=== PATIENT | male | born 1940 | race Hispanic/Latino ===

== ENCOUNTER 2018-01-25 14:11 | Inpatient (IN) | payer MEDICARE ==
[~2018-01-25] VITALS: Ht 154.9 cm; Wt 51.8 kg
--- NOTE | 2018-01-25 17:06 | Diagnostic Imaging Report ---
PROCEDURE:X-RAY LEFT FOOT, COMPLETE COMPARISON:None. INDICATIONS:LEFT FIRST DIGIT INFECTION FINDINGS: Normal mineralization. No acute displaced fracture or dislocation. No lytic or blastic lesion. Cortical surfaces are intact, without erosion or destruction. Anterior and posterior calcaneal enthesophytes. Vascular calcifications. Soft tissue swelling in the first toe. CONCLUSION: Soft tissue swelling in the first toe, without underlying cortical erosion or destruction to suggest osteomyelitis. Stefan Werner M.D. Dictated by: Stefan Werner M.D. on 01/25/2018 at 17:11 Electronically approved by: Stefan Werner M.D. on 01/25/2018 at 17:11
[2018-01-25 17:23] LABS: BASOPHILS # (AUTO) 0.1 (0.0-0.1); BASOPHILS % 0.7 % (0.0-1.0); EOSINOPHILS # (AUTO) 0.7 (0.0-0.4); EOSINOPHILS % 6.6 % (0.0-6.0); HEMATOCRIT 41.6 % (38.2-49.6); HEMOGLOBIN 13.8 g/dL (14.0-18.0); LYMPHOCYTES # (AUTO) 2.1 (1.0-3.2); LYMPHOCYTES % 18.6 % (18.0-39.1); MEAN CORPUSCULAR HEMOGLOBIN 28.8 pg (28-32); MEAN CORPUSCULAR HGB CONC 33.2 g/dL (31-35); MEAN CORPUSCULAR VOLUME 86.7 fL (81-99); NEUTROPHILS # (AUTO) 7.2 (2.1-6.9); NEUTROPHILS % 64.9 % (38.7-80.0); PLATELET COUNT 248 x10e3/uL (140-360); RED CELL DISTRIBUTION WIDTH 13.2 % (11.7-14.4)
[2018-01-25 17:44] LABS: ALANINE AMINOTRANSFERASE 15 IU/L (0-55); ALBUMIN 3.7 g/dL (3.5-5.0); ALBUMIN/GLOBULIN RATIO 0.7 (0.8-2.0); ALKALINE PHOSPHATASE 111 IU/L (40-150); ANION GAP 14.7 mmol/L (8-16); BLOOD UREA NITROGEN 22 mg/dL (7-26); BUN/CREATININE RATIO 21 (6-25); CALCIUM 9.5 mg/dL (8.4-10.2); CARBON DIOXIDE 28 mmol/L (22-29); CHLORIDE 98 mmol/L (98-107); CHOL/HDL RATIO 2.5 (3.9-4.7); CHOLESTEROL 181 MD/DL (0-199); CREATININE, SERUM 1.07 mg/dL (0.72-1.25); EST GLOMERULAR FILTRATION RATE > 60 ML/MIN (60-); GLUCOSE 378 mg/dL (74-118); HDL CHOLESTEROL 72 MG/DL (40-60); LDL CHOLESTEROL 71 MG/DL (60-130); POTASSIUM 3.7 mmol/L (3.5-5.1); SODIUM 137 mmol/L (136-145); TRIGLYCERIDES 192 MG/DL (0-149)
[2018-01-25] MEDS ORDERED: ENALAPRILAT IV INJ 1.25 MG/ML VIAL IV STA (17:50)
[2018-01-25] MEDS ORDERED: INSULIN REGULAR, HUMAN 100 UNIT/1 ML 3ML VIAL SQ ONE (18:00)
[2018-01-25] MEDS ORDERED: SODIUM CHLORIDE 0.9% 1000ML 1,000 ML IV ONE (18:00)
[2018-01-25] MEDS ORDERED: ONDANSETRON HCL INJ 2 MG/ML VIAL IV PRN (18:15)
[2018-01-25] MEDS ORDERED: SODIUM CHLORIDE FLUSH 10 ML SYR INJ PRN (18:15)
[2018-01-25] MEDS ORDERED: DEXTROSE 50% SYRINGE 50 ML IV PRN (18:15)
[2018-01-25] MEDS ORDERED: ENALAPRILAT IV INJ 1.25 MG/ML VIAL IV PRN (18:15)
[2018-01-25 21:00] VITALS: BP 180/79
[2018-01-25] MEDS: INSULIN LISPRO 100 UNIT/1 ML 3ML VIAL SQ SCH (21:00)
[2018-01-25] MEDS: ATORVASTATIN 20 MG TAB PO SCH (22:40)
[2018-01-26] VITALS (8 sets, daily range): BP systolic 104–174; BP diastolic 55–74
[2018-01-26 05:46] LABS: BASOPHILS # (AUTO) 0.1 (0.0-0.1); BASOPHILS % 0.6 % (0.0-1.0); EOSINOPHILS # (AUTO) 0.6 (0.0-0.4); EOSINOPHILS % 6.7 % (0.0-6.0); HEMATOCRIT 35.8 % (38.2-49.6); HEMOGLOBIN 11.9 g/dL (14.0-18.0); LYMPHOCYTES # (AUTO) 1.5 (1.0-3.2); LYMPHOCYTES % 16.2 % (18.0-39.1); MEAN CORPUSCULAR HGB CONC 33.2 g/dL (31-35); MEAN CORPUSCULAR VOLUME 87.1 fL (81-99); MONOCYTES % 10.7 % (4.4-11.3); NEUTROPHILS # (AUTO) 6.1 (2.1-6.9); NEUTROPHILS % 65.4 % (38.7-80.0); PLATELET COUNT 217 x10e3/uL (140-360); RED BLOOD COUNT 4.11 x10e6/uL (4.3-5.7); RED CELL DISTRIBUTION WIDTH 13.2 % (11.7-14.4)
--- NOTE | 2018-01-26 06:07 | Diagnostic Imaging Report ---
EXAM: CHEST SINGLE (PORTABLE), AP 1 view INDICATION: Chest pain COMPARISON: None FINDINGS: LINES/TUBES: None LUNGS: Nonspecific reticulonodular opacities bilaterally. Indeterminate opacity right infrahilar region. PLEURA: No effusions or pneumothorax. HEART AND MEDIASTINUM: The heart is within normal size limits. Prominence of the bilateral juanito. BONES AND SOFT TISSUES: No acute findings. IMPRESSION: Indeterminate findings including bilateral reticulonodular changes, prominence of the bilateral juanito and right infrahilar opacity. An upright PA and lateral view of the chest is recommended for further evaluation. Signed by: Dr. Ania Guzman M.D. on 01/26/2018 6:04 AM
[2018-01-26 06:15] LABS: ANION GAP 11.3 mmol/L (8-16); BLOOD UREA NITROGEN 17 mg/dL (7-26); BUN/CREATININE RATIO 20 (6-25); CALCIUM 8.7 mg/dL (8.4-10.2); CARBON DIOXIDE 27 mmol/L (22-29); CHLORIDE 105 mmol/L (98-107); CREATININE, SERUM 0.85 mg/dL (0.72-1.25); EST GLOMERULAR FILTRATION RATE > 60 ML/MIN (60-); GLUCOSE 230 mg/dL (74-118); POTASSIUM 4.3 mmol/L (3.5-5.1); SODIUM 139 mmol/L (136-145)
[2018-01-26] MEDS: INSULIN LISPRO 100 UNIT/1 ML 3ML VIAL SQ SCH ×4 (08:32→21:11)
[2018-01-26] MEDS ORDERED: LISINOPRIL 20 MG TAB PO SCH (09:00)
[2018-01-26] MEDS ORDERED: HYDRALAZINE HCL 20 MG/ML VIAL IV PRN (11:00)
[2018-01-26] MEDS: SODIUM CHLORIDE 0.9% 1000ML 1,000 ML IV SCH ×2 (12:45→21:15)
[2018-01-26] MEDS: VANCOMYCIN 1GM/NS 250 ML 250 ML IV SCH ×2 (12:45→23:35)
[2018-01-26] MEDS: PIPER-TAZ 3.375 GM 50 ML IV SCH ×2 (14:00→21:11)
--- NOTE | 2018-01-26 14:20 | History and Physical ---
CHIEF COMPLAINT: Left big toe gangrene. HPI: This is a 77-year-old male with known history of type 2 diabetes for more than 25+ years, hypertension, who comes into the ED with complaints of left gangrene toe pain ongoing for the last several months now. Patient reports that he has been going to the [facility] and has been given some oral antibiotics with no improvement. He has not had any referral to podiatry at this time. Patient denies any discharge from the toe or any fever as well. Patient seen and evaluated at bedside on the medical floor, currently doing well with no other complaints. Podiatry and cardiology has been consulted. Lower extremity angiogram, CTA runoff has been ordered. ID has been consulted. REVIEW OF SYSTEMS: Pertinent positive: Left big toe gangrene. Pertinent negative: Denies any chest pain, palpitation, nausea, vomiting, diarrhea, dysuria, hematuria. frequency, urgency, lightheadedness, dizziness, abdominal pain, headache, shortness of breath, or any other complaints. The rest of the 14-point review of systems have been reviewed with the patient and are negative. ALLERGIES: NO KNOWN DRUG ALLERGIES. HOME MEDICATIONS: Lisinopril 20 mg daily. He does not have any of his other medications, unsure if he is currently on insulin or not, this is all the medications he has currently at this time. PAST MEDICAL HISTORY: Hypertension, diabetes, and questionable history of PAD. SURGICAL HISTORY: None. FAMILY HISTORY: Hypertension and diabetes. SOCIAL HISTORY: No drugs. No alcohol. Does not smoke. Good social support. VITAL SIGNS: Temperature is 97.7, pulse 70, respiratory rate is 18, blood pressure 145/63, pulse ox 95% on room air. LABORATORY DATA: Lab findings show white count of 9.2, hemoglobin 11.9, hematocrit of 35.8, platelets of 217. Chemistry: Sodium 139, potassium 4.3, chloride 105, bicarb 27, anion gap of 11, BUN 17, creatinine is 0.85, glucose is 230, calcium 8.7. Hemoglobin A1c was found to be 9.2. Albumin was 3.7. LDL was 71. LFTs were normal. MICROBIOLOGY: Blood cultures are pending. IMAGING STUDIES: Chest x-ray indeterminate including bilateral reticular nodular changes. Prominent bilateral hilar and right infrahilar opacity. Foot x-ray, soft tissue swelling of the left first toe without any cortical erosion or discharge to suggest osteomyelitis. Lower extremity ultrasound, arterial Doppler pending. PHYSICAL EXAMINATION GENERAL: Not in acute distress, alert and oriented x3, cooperative on exam. HEENT: Head normocephalic, atraumatic. Eyes: Pupils equal, round, and reactive to light bilaterally. Extraocular movements intact bilaterally. Throat: No evidence of any erythema or exudates in the posterior pharynx. Has poor dentition. NECK: Supple. Good range of motion. PULMONARY: Clear to auscultation bilaterally. No wheezing. No rales, no rhonchi, no crackles appreciated. CARDIOVASCULAR: Positive S1, S2. No murmurs, rubs, or gallops appreciated. ABDOMEN: Soft, nondistended, nontender to palpation. Bowel sounds present. MUSCULOSKELETAL: Strength is 5/5 throughout. No evidence of any muscle deficit on examination. No weakness appreciated. NEUROLOGIC: Cranial nerves II through XII grossly intact. No evidence of any neurological deficit on exam. SKIN: Intact. Warm to touch. Good capillary refill. PSYCHIATRIC: Normal affect and mood. EXTREMITIES: He has left big toe dry gangrene. IMPRESSION 1. Left big toe dry gangrene. 2. Type 2 diabetes, uncontrolled. 3. Hypertension. 4. Prophylaxis. 5. Fluid, electrolytes, nutrition. 6. Disposition. PLAN: At this time, podiatry has been consulted. Likely needs debridement of the toe versus amputation of the left big toe. Arterial Doppler is consistent with decreased flow. Cardiology was consulted. Bilateral lower extremity abdominal aorta runoff to evaluate for vascularity in the event any intervention is needed. Will continue with IV antibiotics with vancomycin and Zosyn. ID has been consulted as well. We will put him on insulin sliding scale, A1c is elevated at 9.2. Continue same antihypertensive medications as well as p.r.n. hydralazine. Put on Lovenox for DVT prophylaxis. Patient will likely be here for several more days and will be inpatient at this time. Otherwise podiatry, ID, and cardiology have all been consulted. Job#: [id number] KATIE
--- NOTE | 2018-01-26 15:46 | Consultation ---
DATE OF CONSULTATION: January 26, 2018 REASON FOR CONSULTATION: Ulcer on left big toe. HISTORY OF PRESENT ILLNESS: This patient is a very pleasant 77-year-old male with diabetes mellitus, atherosclerotic disease, hypertension more than 25 years. He comes in with left toe pain, redness and swelling and gangrene. He was seen by [facility]. He has been taking several courses of oral antibiotic without any improvement. The patient was seen in the emergency room where he was admitted after evaluation. PAST MEDICAL HISTORY: Diabetes mellitus, hypertension, atherosclerotic disease. PAST SURGICAL HISTORY: Denies. ALLERGIES: NKA. SOCIAL HISTORY: Does not smoke, no drug abuse, no alcohol abuse. FAMILY HISTORY: Otherwise unremarkable. REVIEW OF SYSTEMS: HEENT: Negative. PULMONARY: Negative. CARDIAC: Negative. : Negative. SKIN: No rash. PHYSICAL EXAMINATION: GENERAL: Alert, oriented, does not seem to be in any acute distress. VITAL SIGNS: Stable, currently afebrile. HEENT: Not icteric. NECK: Supple. CHEST: Clear bilaterally. HEART: S1 and S2, no murmur. ABDOMEN: Soft. EXTREMITIES: On the left big toe, there is erythema and edema. There are gangrenous changes at the tip. LABORATORY DATA: White count is 11.05, hemoglobin 13.8. Sodium 139, potassium 4.3, creatinine 0.85. IMPRESSION AND PLAN: Gangrene of the toe, concern about peripheral arterial disease. Concern about osteomyelitis. The X-ray does not reveal osteo. I agree with vancomycin and Zosyn. For the time being, I would recommend vascular workup for peripheral vascular disease. Podiatry consultation. Obtain sed rate and C-reactive protein. Obtain MRI with or without contrast. Recheck CBC. Will follow with you. Job#: [id number]
[2018-01-26] MEDS ORDERED: GADOBENATE DIMEGLUMINE 1 ML IV ONE (16:03)
[2018-01-26] MEDS ORDERED: SODIUM CHLORIDE 0.9% 100 ML 100 ML ONE (16:58)
[2018-01-26] MEDS ORDERED: IOPAMIDOL 370 MG/ML 200 ML INFUS..BTL INJ ONE (16:58)
[2018-01-26] MEDS: ENOXAPARIN SOD INJ 40 MG/0.4 ML SYR SC SCH (17:00)
--- NOTE | 2018-01-26 17:07 | Consultation ---
DATE OF CONSULTATION: January 25, 2018 CARDIOLOGY CONSULTATION REQUESTING PHYSICIAN: Dr. Nugent. REASON FOR CONSULTATION: Uncontrolled hypertension and possible aortic stenosis. HISTORY OF PRESENT ILLNESS: This is a 77-year-old male that presented with left lower extremity pain. According to the patient, he had infection in that left great toe for 4 months now. He stated that it was very red, swollen, painful, with burning sensation and is still present. He stated that the pain got worse that he decided to come into the emergency room for evaluation. He has a history of diabetes. He denied any chest pain, any dizziness, any shortness of breath, any diaphoresis or headache. PAST MEDICAL HISTORY: Diabetes and hyperlipidemia. PAST SURGICAL HISTORY: Appendectomy. FAMILY HISTORY: Noncontributory. SOCIAL HISTORY: Lives at home with the family. No smoking, no drinking. MEDICATIONS: See med list. ALLERGIES: HE IS NOT ALLERGIC TO ANY MEDICATION. REVIEW OF SYSTEMS: Negative except those mentioned above. PHYSICAL EXAMINATION VITAL SIGNS: Temperature 98, heart rate 85, blood pressure 143/63, respiration 15, oxygen saturation 95% on room air. GENERAL: He is awake, alert, and oriented x3. HEENT: Mucous membrane moist. NECK: Supple. LUNGS: Bilaterally clear to auscultation. CARDIOVASCULAR: S1/S2 present with 3 to 4 grade murmur heard. ABDOMEN: Soft. NEUROLOGICAL: Intact. EXTREMITIES: On the right with no edema. Left, on the great toe is red, swollen, with gangrene. LABS: Sodium 139, potassium 4.3, chloride 106, CO2 27, BUN 17, creatinine 0.85, glucose 230. White blood cell 9.28, hemoglobin 11.9, hematocrit 35.8, platelet 217. IMPRESSION 1. Diabetes. 2. Left great toe gangrene. 3. Hypertension. ASSESSMENT/PLAN 1. Will go ahead and get an echocardiogram to assess the LV and the valve function. 2. Will get bilateral lower extremity arterial Doppler. 3. Will get podiatry consult. Is on antibiotics. Will check lipid panel. Further cardiac workup pending clinical course. Thank you for this consultation. Dictated by: Alison Shipley NP Job#: [id number] EV
--- NOTE | 2018-01-26 17:27 | Diagnostic Imaging Report ---
MRI of the left forefoot with and without contrast. History: Dry gangrene. Osteomyelitis. Diabetic ulcer on the left great toe. Decreased range of motion. Pain. Technique: Multiplanar multisequence MRI of the left foot with and without IV contrast. 10 cc IV gadolinium contrast material was administered. Comparison: Radiographs 01/25/2018 Findings: There is abnormal skin thickening with ulceration at the distal first toe dorsally. No well-formed drainable fluid collection/abscess is seen. There is abnormal contrast enhancement in the region best seen on series 10 image 24. Additionally, there is abnormal bone marrow edema in the distal tuft of the first toe best seen on series 9 image 21. Scattered degenerative changes are seen about the remaining visualized osseous structures. The visualized muscles are normal in size, signal intensity and morphology. No ligamentous or tendon tear. The visualized neurovascular bundles are intact. Impression: Findings consistent with skin ulceration and cellulitis at the distal aspect of the first toe. No well-formed drainable fluid collection/abscess is seen. Additionally, there is abnormal bone marrow edema in the distal tuft of the first toe worrisome for osteomyelitis. Signed by: Dr. Timmy Cook M.D. on 01/26/2018 5:24 PM
[2018-01-26] MEDS: ATORVASTATIN 20 MG TAB PO SCH (21:10)
[2018-01-26] MEDS: ACETAMINOPHEN 325 MG TAB PO PRN (21:56)
[2018-01-27] VITALS (17 sets, daily range): BP systolic 119–189; BP diastolic 57–86
[2018-01-27 05:25] LABS: BASOPHILS # (AUTO) 0.1 (0.0-0.1); BASOPHILS % 0.5 % (0.0-1.0); EOSINOPHILS # (AUTO) 0.6 (0.0-0.4); EOSINOPHILS % 6.4 % (0.0-6.0); HEMATOCRIT 35.4 % (38.2-49.6); HEMOGLOBIN 11.9 g/dL (14.0-18.0); LYMPHOCYTES # (AUTO) 1.9 (1.0-3.2); LYMPHOCYTES % 20.6 % (18.0-39.1); MEAN CORPUSCULAR HEMOGLOBIN 28.9 pg (28-32); MEAN CORPUSCULAR HGB CONC 33.6 g/dL (31-35); MEAN CORPUSCULAR VOLUME 85.9 fL (81-99); MONOCYTES % 10.7 % (4.4-11.3); NEUTROPHILS # (AUTO) 5.6 (2.1-6.9); NEUTROPHILS % 61.5 % (38.7-80.0); PLATELET COUNT 211 x10e3/uL (140-360); RED BLOOD COUNT 4.12 x10e6/uL (4.3-5.7); RED CELL DISTRIBUTION WIDTH 13.1 % (11.7-14.4)
[2018-01-27 05:41] LABS: INR 1.19; PARTIAL THROMBOPLASTIN TIME 33.5 seconds (23.8-35.5); PROTHROMBIN TIME 14.2 seconds (11.9-14.5)
[2018-01-27 05:49] LABS: ANION GAP 12.1 mmol/L (8-16); BLOOD UREA NITROGEN 14 mg/dL (7-26); BUN/CREATININE RATIO 17 (6-25); CALCIUM 8.5 mg/dL (8.4-10.2); CARBON DIOXIDE 25 mmol/L (22-29); CHLORIDE 107 mmol/L (98-107); CREATININE, SERUM 0.83 mg/dL (0.72-1.25); EST GLOMERULAR FILTRATION RATE > 60 ML/MIN (60-); GLUCOSE 155 mg/dL (74-118); POTASSIUM 4.1 mmol/L (3.5-5.1); SODIUM 140 mmol/L (136-145)
[2018-01-27] MEDS: PIPER-TAZ 3.375 GM 50 ML IV SCH ×3 (06:33→21:31)
[2018-01-27] MEDS: INSULIN LISPRO 100 UNIT/1 ML 3ML VIAL SQ SCH ×4 (07:30→21:31)
--- NOTE | 2018-01-27 07:33 | Diagnostic Imaging Report ---
PROCEDURE:CTA LOWER EXTREMITIES BILAT COMPARISON:None. INDICATIONS:DRY GANGRENE, STENOSIS Technique: CT angiographic images of the pelvis and lower extremities were obtained after the intravenous administration of 100 cc Isovue-370. Coronal and sagittal reformatted images were available for review. For optimization of anatomic detail, volume rendered reconstructions were obtained on a single workstation under the direct supervision of the interpreting physician. FINDINGS: Vasculature: Iliac inflow: The right and left common, and external iliac arteries are widely patent without significant stenosis. Mild atherosclerotic calcification of the visceral branches of the internal iliac arteries, without significant stenosis. Femoral-popliteal segments: Left: The left common femoral artery is widely patent. The femoral bifurcation is patent. There is atherosclerotic calcification of the profunda femoris artery and proximal muscular branches with varying degrees of stenosis. There is calcified and noncalcified atherosclerotic plaque along the course of the superficial femoral artery, with scattered foci of mild stenosis. Short segment moderate stenosis is noted at the adductor hiatus (series 3 image 96). The above-knee popliteal artery is patent. There is a short segment severe stenosis of the popliteal artery at the level of the knee joint (series 3 image 142). Right: The common femoral artery is patent. The femoral bifurcation is patent. There is atherosclerotic calcification of the profunda femoris artery and muscular branches with varying degrees of stenosis. There is calcified and noncalcified atherosclerotic plaque along the course of the right superficial femoral artery. Short segment focus of moderate stenosis at the level of the adductor hiatus (series 3 image 94). The popliteal artery is notable for calcified atherosclerotic plaque without significant stenosis. Runoff: Left: Evaluation of the runoff vessels is limited secondary to extensive atherosclerotic calcification. The anterior tibial artery is patent proximally, though it is suspected to occlude at the level of the upper calf. The tibioperoneal trunk is patent. The peroneal artery is patent to its termination above the ankle joint. The posterior tibial artery appears patent to its continuation as dorsalis pedis artery. Right: Evaluation of the runoff vessels is limited secondary to extensive atherosclerotic calcification. The anterior tibial artery is patent, probably to its continuation of the dorsalis pedis though this vessel is densely calcified, measuring accurate interpretation difficult. The tibioperoneal trunk is patent. The peroneal artery is patent to its termination at the ankle joint. The posterior tibial artery is patent probably to its continuation as the lateral plantar artery, though again evaluation is limited secondary to extensive atherosclerotic calcification. Nonvascular findings: Pelvic organs: The urinary bladder, prostate, and seminal vesicles are unremarkable. No pelvic lymphadenopathy. GI tract: visualize portions of the small and large bowel show no wall thickening or distention. Soft tissues: No focal soft tissue abnormalities. Bones: No osseous destructive lesions. Degenerative changes of the lower lumbar spine. CONCLUSION: No significant iliac inflow stenosis. Tandem short segment moderate-severe stenoses of the distal left superficial femoral artery and mid segment of the popliteal artery. Short segment moderate stenosis of the distal right superficial femoral artery. Suboptimal evaluation of the runoff vessels secondary to extensive atherosclerotic calcification. Two-vessel runoff is suspected bilaterally. Dictated by: Kin Hong M.D. on 01/27/2018 at 7:38 Electronically approved by: Kin Hong M.D. on 01/27/2018 at 7:38
[2018-01-27] MEDS: SODIUM CHLORIDE 0.9% 1000ML 1,000 ML IV SCH ×2 (08:23→16:46)
--- NOTE | 2018-01-27 10:19 | Consultation ---
DATE OF CONSULTATION: January 27, 2018 REASON FOR CONSULTATION: Left great toe gangrene. HISTORY OF PRESENT ILLNESS: Thank you for this consultation. This is a 77-year-old gentleman. He presented to the hospital with a 3-week history of worsening black discolored left great toe. The patient is Welsh-speaking only. He was following up at the [facility]. He was prescribed oral antibiotics about a week ago with no improvement. He has been diabetic for over 25 years. Denies any burning or tingling sensation. No nausea or vomiting. No fever or chills. PAST MEDICAL HISTORY: Hypertension, diabetes mellitus, peripheral vascular disease. SURGICAL HISTORY: Denies. ALLERGIES: NO KNOWN DRUG ALLERGIES. MEDICATIONS: MAR is reviewed, and includes vancomycin and Zosyn. SOCIAL HISTORY: No alcohol, tobacco or illicit drug use. FAMILY HISTORY: Noncontributory. REVIEW OF SYSTEMS: All systems were reviewed and negative other than stated above. PHYSICAL EXAMINATION VITAL SIGNS: Temperature 97.7, blood pressure 156/68, heart rate 76, respiratory rate 20. GENERAL: The patient is alert and oriented times 3 and in no acute distress. EXTREMITIES: Dorsalis pedis and posterior tibial pulses were nonpalpable on the left foot. Skin temperature is warm to touch. Necrotic ulcer on the plantar aspect of the left great toe. Mild malodor. No crepitus. No discharge. Skin with necrotic changes. Light touch and pinprick sensation is reduced. LABS: White blood cells 9.13, hemoglobin 11.9, hematocrit 35.4, and platelets 211,000. Sodium 140, potassium 4.1, chloride 107, bicarb 25, BUN 14, creatinine 0.83, glucose 155. X-rays of the left foot shows soft tissue swelling. MRI of the left foot showed findings consistent with skin ulceration, abnormal bone marrow edema of the distal tuft of left great toe consistent with osteomyelitis. ASSESSMENT 1. Infected necrotic ulceration, left great toe with gangrene. 2. Acute osteomyelitis of left great toe. 3. Diabetes mellitus with peripheral neuropathy. 4. Peripheral vascular disease. PLAN: I reviewed the x-rays and MRI. Continue IV antibiotics per infectious disease, Dr. Abbasi. Currently, on vancomycin and Zosyn. The patient is planned for an angiogram today. If the patient cannot be successfully revascularized, will plan on left great toe amputation on Hitesh. Local care with just Betadine wet-to-dry dressing. Tight glycemic control. Will follow clinically. Thank you for allowing us to assist in the patient's care. Job#: [id number]
[2018-01-27] MEDS: VANCOMYCIN 1GM/NS 250 ML 250 ML IV SCH ×2 (11:07→23:40)
[2018-01-27] MEDS ORDERED: LIDOCAINE HCL 2% LOCAL 20 ML VIAL ONE (12:50)
[2018-01-27] MEDS ORDERED: HEPARIN SOD/SOD CHLORIDE 1,000 ML ONE (12:50)
[2018-01-27] MEDS ORDERED: IOPAMIDOL 300MG/ML 100 ML INFUS..BTL IV ONE ×2 (12:50→12:52)
[2018-01-27] MEDS ORDERED: SODIUM CHLORIDE 0.9% 1000ML 1,000 ML ONE (12:52)
[2018-01-27] MEDS ORDERED: FENTANYL CITRATE/PF 100MCG/2 ML INJ ONE (13:12)
[2018-01-27] MEDS ORDERED: MIDAZOLAM HCL 2 MG/2 ML VIAL ONE (13:12)
[2018-01-27] MEDS ORDERED: HEPARIN SOD (PORCINE) 1000 UNIT/ML 30ML ONE (13:29)
[2018-01-27] MEDS ORDERED: NITROGLYCERIN/D5W 200 MCG/ML 0 ML ONE (13:29)
[2018-01-27] MEDS ORDERED: ASPIRIN 325 MG TAB ONE (14:32)
[2018-01-27] MEDS ORDERED: PROTAMINE SULFATE 10 MG/ML 5 ML VIAL ONE (14:44)
[2018-01-27] MEDS: ENOXAPARIN SOD INJ 40 MG/0.4 ML SYR SC SCH (16:46)
[2018-01-27] MEDS: ATORVASTATIN 20 MG TAB PO SCH (21:30)
[2018-01-27] MEDS: ACETAMINOPHEN 325 MG TAB PO PRN (21:30)
[2018-01-28] VITALS (10 sets, daily range): BP systolic 132–167; BP diastolic 60–73
[2018-01-28] MEDS: SODIUM CHLORIDE 0.9% 1000ML 1,000 ML IV SCH ×3 (03:15→23:45)
[2018-01-28] MEDS: PIPER-TAZ 3.375 GM 50 ML IV SCH ×3 (05:53→21:31)
[2018-01-28] MEDS: INSULIN LISPRO 100 UNIT/1 ML 3ML VIAL SQ SCH ×4 (08:44→21:00)
[2018-01-28] MEDS: VANCOMYCIN 1GM/NS 250 ML 250 ML IV SCH (11:25)
[2018-01-28] MEDS: ACETAMINOPHEN 325 MG TAB PO PRN (14:37)
[2018-01-28] MEDS: ENOXAPARIN SOD INJ 40 MG/0.4 ML SYR SC SCH (17:06)
--- NOTE | 2018-01-28 17:42 | Diagnostic Imaging Report ---
Date and Time: 01/27/2018 Procedure: Left lower extremity angiography with balloon angioplasty of superficial femoral and popliteal arterial stenoses. polishing machine operator helper: Dr. Hong Pre-operative diagnosis: Nonhealing left great toe ulcer Post-operative diagnosis: Nonhealing left great toe ulcer, multilevel peripheral vascular disease Conscious Sedation: Versed 1 mg and Fentanyl 75 mcg. The patient's heart rate and pulse oximetry were continuously monitored by the interventional radiology nurse. Blood pressure was monitored at 5 minute intervals. Additional Medications: Heparin sulfate 5000 units intravenous. Remaining sulfate 20 mg intravenous in divided doses. Aspirin 325-mg by mouth Fluoroscopy time: 11.5 minutes Dose-area Product: 695.6 cGycm2. Contrast used: 80 cc Isovue-300 Estimated blood loss: Less than 20 cc Specimens: None Implants: None Condition at completion: Stable Disposition: Returned to floor DISCUSSION: Informed consent for the procedure was obtained from the patient and documented in the medical record after discussion of risks and benefits. The patient was placed in the supine position on the angiographic table. The right groin was prepped and draped in the standard sterile fashion. 1% lidocaine was infiltrated into the skin and subcutaneous tissues for local anesthesia. Then under continuous sonographic guidance, a 21-gauge micropuncture needle was used to access the right common femoral artery. A 0.0 1 8-in. wire was advanced centrally under fluoroscopic guidance. The needle was exchanged for a 5 Singaporean micropuncture sheath and the wire upsized to a 0.0 3 5-in. J-wire, which was advanced into the lower abdominal aorta. A 5 Singaporean vascular sheath was advanced over the wire to secure the access. A 5 Singaporean flush catheter was advanced over the wire and positioned in the low abdominal aorta. Digital subtraction angiography of the pelvis was performed. A 0.0 3 5-in. Glidewire advantage was advanced through the catheter and down into the left external iliac artery. The catheter was advanced over the wire and digital subtraction angiography of the left lower extremity was then performed at multiple stations. 5000 units of heparin was administered intravenously with confirmation of activated clotting time greater than 300 seconds prior to the below described intervention. The Glidewire advantage was reintroduced through the catheter. The catheter and sheath were then removed over the wire and a 6 Singaporean Destination sheath was advanced over the wire and positioned in the distal left external iliac artery. The Glidewire advantage and 4 Singaporean angled catheter were advanced through the sheath and into the below-knee popliteal artery. The catheter was removed over the wire. A short segment severe stenosis of the popliteal artery at the level of the knee joint was then treated by balloon angioplasty using a 5 x 40 mm balloon with player services representative fluoroscopic images stored. The balloon was then used to dilate a short segment severe stenosis of the distal superficial femoral artery, approximately 5 cm proximal to the adductor hiatus. Administrative Manager fluoroscopic images were stored. A balloon was deflated and removed over the wire. A 5 mm x 40 mm paclitaxel coated balloon was then advanced over the wire and positioned at the popliteal stenosis. The balloon was then inflated to nominal pressure x 2 m. The balloon was deflated and removed. A 6 mm x 40 mm paclitaxel coated balloon was then advanced over the wire and positioned at the distal SFA stenosis. The balloon was then inflated to nominal pressure x 2 m. The balloon was deflated and removed. Digital subtraction angiography of the distal left lower extremity was repeated. The wire was removed. The sheath was exchanged for a short 6 Singaporean sheath. Hemostasis was then she by deployment of a Mynx vascular closure device in the standard fashion after repeat sterile preparation of the groin and reversal of heparin with protamine sulfate, total of 20 mg. A sterile dressing was applied. The patient tolerated the procedure well without immediate complication. Findings: Widely patent distal abdominal aorta, bilateral common, internal, and external iliac arteries, without significant stenosis. Diffusely diseased left superficial femoral artery with scattered foci of mild stenosis and a short segment focus of severe stenosis approximately 5 cm proximal to the adductor hiatus. Diffusely diseased popliteal artery with a short segment severe stenosis at the level of the knee joint. The anterior tibial artery is diffusely diseased with multiple foci of proximal moderate-severe stenosis, ultimately leading to occlusion at the level of the lower calf. The tibioperoneal trunk is patent. The peroneal artery is patent to its termination at the ankle joint. The posterior tibial artery is patent proximally with scattered foci of severe stenosis distally. The posterior tibial artery occludes over a short segment at the level of the distal tibia, with reconstitution by peroneal collaterals. Angiography after above-described balloon angioplasty of the superficial femoral and popliteal artery shows brisk in-line flow without significant residual SFA or popliteal stenosis. IMPRESSION: Successful left lower extremity angiography with conventional and drug coated balloon angioplasty of tandem distal superficial femoral artery and popliteal arterial stenoses, without significant residual stenosis. No significant iliac inflow stenosis. Two-vessel runoff supplied by the peroneal artery and diffusely diseased posterior tibial artery. The anterior tibial artery occludes at the level of the distal calf. Signed by: Dr. Kin Hong M.D. on 01/28/2018 5:38 PM
[2018-01-28] MEDS: ATORVASTATIN 20 MG TAB PO SCH (21:30)
[2018-01-29] VITALS (8 sets, daily range): BP systolic 130–179; BP diastolic 64–74
[2018-01-29] MEDS: VANCOMYCIN 1GM/NS 250 ML 250 ML IV SCH ×3 (00:29→22:23)
[2018-01-29] MEDS: PIPER-TAZ 3.375 GM 50 ML IV SCH ×3 (05:47→21:15)
[2018-01-29] MEDS: INSULIN LISPRO 100 UNIT/1 ML 3ML VIAL SQ SCH ×4 (08:58→20:42)
[2018-01-29] MEDS ORDERED: LISINOPRIL 10 MG TAB PO SCH (09:00)
[2018-01-29] MEDS: SODIUM CHLORIDE 0.9% 1000ML 1,000 ML IV SCH (09:15)
[2018-01-29] MEDS ORDERED: LISINOPRIL 10 MG TAB PO NR (10:45)
[2018-01-29] MEDS: ENOXAPARIN SOD INJ 40 MG/0.4 ML SYR SC SCH (16:57)
[2018-01-29] MEDS: ACETAMINOPHEN 325 MG TAB PO PRN (18:27)
[2018-01-29] MEDS: ATORVASTATIN 20 MG TAB PO SCH (20:33)
[2018-01-30] VITALS (7 sets, daily range): BP systolic 111–154; BP diastolic 53–70
[2018-01-30] MEDS: PIPER-TAZ 3.375 GM 50 ML IV SCH ×3 (05:07→22:36)
[2018-01-30] MEDS: LISINOPRIL 10 MG TAB PO SCH (08:24)
[2018-01-30] MEDS: INSULIN LISPRO 100 UNIT/1 ML 3ML VIAL SQ SCH ×4 (08:24→20:25)
[2018-01-30] MEDS: VANCOMYCIN HCL 1.25 GM in SODIUM CHLORIDE 0.9% 250ML 300 ML IV SCH (16:45)
[2018-01-30] MEDS ORDERED: FENTANYL CITRATE/PF 100MCG/2 ML INJ ONE (17:55)
[2018-01-30] MEDS ORDERED: MIDAZOLAM HCL 2 MG/2 ML VIAL ONE (17:55)
[2018-01-30] MEDS: ATORVASTATIN 20 MG TAB PO SCH (20:23)
[2018-01-30] MEDS: ACETAMINOPHEN 325 MG TAB PO PRN (22:41)
[2018-01-31] VITALS (8 sets, daily range): BP systolic 142–163; BP diastolic 65–70
[2018-01-31] MEDS: PIPER-TAZ 3.375 GM 50 ML IV SCH ×3 (05:52→22:00)
[2018-01-31] MEDS: INSULIN LISPRO 100 UNIT/1 ML 3ML VIAL SQ SCH ×4 (07:30→21:30)
[2018-01-31] MEDS: LISINOPRIL 10 MG TAB PO SCH (08:00)
[2018-01-31] MEDS ORDERED: BUPIVACAINE HCL 0.5% INJ 30 ML VIAL INJ ONE (13:54)
[2018-01-31] MEDS ORDERED: BACITRACIN 50,000 UNIT VIAL ONE (13:54)
[2018-01-31] MEDS ORDERED: PIPER-TAZ 3.375 GM 50 ML ONE (14:31)
--- NOTE | 2018-01-31 16:07 | Operative Report ---
DATE OF PROCEDURE: January 31, 2018 PREOPERATIVE DIAGNOSES 1. Infected necrotic ulceration, left great toe with acute osteomyelitis. 2. Diabetes mellitus, peripheral neuropathy. 3. Peripheral arterial disease. POSTOPERATIVE DIAGNOSES 1. Infected necrotic ulceration, left great toe with acute osteomyelitis. 2. Diabetes mellitus, peripheral neuropathy. 3. Peripheral arterial disease. OPERATION PERFORMED: Amputation of left great toe. CURRICULUM CONSULTANT: None. ANESTHESIA: General. HEMOSTASIS: None. ESTIMATED BLOOD LOSS: Minimal. MATERIAL USED: 2-0 Vicryl, 3-0 Prolene. INJECTABLES: 10 mL of 0.5% Marcaine plain injected postoperatively. PATHOLOGY: Left great toe. INDICATIONS FOR PROCEDURE: This is a 77-year-old gentleman who presented to the hospital with worsening necrotic, infected left great toe ulcer. X-rays and MRI were positive for acute osteomyelitis. He was seen by interventional radiology and underwent angiogram and neoplasty of the lower extremity. We discussed other options with the patient and the . We discussed operative versus nonoperative treatment. After much discussion with the patient, we decided on proceeding with amputation of the left great toe. The patient does understand that he still has significant vascular disease along his left leg and foot. He has had a high chance of a proximal amputation . The patient is willing to proceed. All questions were answered to the patient's satisfaction. All risks and benefits of the procedure were explained. No guarantees were given. Informed consent was obtained. DESCRIPTION OF PROCEDURE: After the patient's preoperative workup was completed, the patient was brought into the operating room and placed in the supine position upon the surgical table at which time general anesthesia was administered. The patient's left foot was prepped and draped in the usual sterile manner. After appropriate time out was performed, we are ready to begin our surgical procedure. Attention was directed to the left lower extremity and the left foot. Utilizing a #15 blade, I was able to make a racket-type incision along the first MTPJ of the left foot. Incision was carried down to the subcutaneous tissue. All bleeders were cauterized and ligated as necessary. Incision was carried down to the capsular periosteal tissue. The left great toe was completely disarticulated at the first metatarsophalangeal joint in the left foot and passed off the surgical field for pathological studies. At this time, the wound cavity was then irrigated with copious amounts of normal sterile saline. The deep subcutaneous tissue was reapproximated utilizing 2-0 Vicryl. The superficial subcutaneous tissue was also reapproximated using 2-0 Vicryl. The skin was reapproximated utilizing 3-0 Prolene in a simple interrupted subcuticular stitch. The left foot was then dressed with Adaptic, 4 x 4 gauze, Kerlix and an Dariel bandage. The patient was noted to have tolerated the procedure and the anesthesia well. At no time was there a break in sterility. The patient was transferred from the operating room to the recovery room with vital signs stable and neurovascular status intact. After a brief period in the recovery room, the patient was to be discharged back to the floor. COMPLICATIONS: None. All sponge, needle and instrument counts were correct. I was present through all aspects of the procedure. Job#: [id number]
[2018-01-31] MEDS: ENOXAPARIN SOD INJ 40 MG/0.4 ML SYR SC SCH (17:31)
[2018-01-31] MEDS: VANCOMYCIN HCL 1.25 GM in SODIUM CHLORIDE 0.9% 250ML 300 ML IV SCH (17:31)
[2018-01-31] MEDS ORDERED: EPHEDRINE SULFATE INJ 50 MG/10 ML SYR ONE (17:43)
[2018-01-31] MEDS ORDERED: SEVOFLURANE INHAL SOLN 250 ML PEN BTL ONE (17:43)
[2018-01-31] MEDS ORDERED: PROPOFOL IV EMULSION 10 MG/ML 20 ML VIAL ONE (17:43)
[2018-01-31] MEDS ORDERED: ONDANSETRON HCL INJ 2 MG/ML VIAL ONE (17:43)
[2018-01-31] MEDS ORDERED: LIDOCAINE HCL 2% LOCAL INJ 5 ML SDV VIAL INJ ONE (17:43)
[2018-01-31] MEDS: ATORVASTATIN 20 MG TAB PO SCH (21:30)
[2018-02-01] VITALS (7 sets, daily range): BP systolic 119–187; BP diastolic 56–77
[2018-02-01] MEDS: PIPER-TAZ 3.375 GM 50 ML IV SCH ×3 (05:53→22:30)
[2018-02-01] MEDS: ACETAMINOPHEN 325 MG TAB PO PRN ×2 (06:06→12:20)
[2018-02-01] MEDS: LISINOPRIL 10 MG TAB PO SCH (08:31)
[2018-02-01] MEDS: ACETAMINOPHEN/CODEINE 300MG - 30MG TAB PO PRN ×3 (08:32→22:10)
[2018-02-01] MEDS: INSULIN LISPRO 100 UNIT/1 ML 3ML VIAL SQ SCH ×4 (08:33→21:00)
--- NOTE | 2018-02-01 08:40 | Progress Note ---
DATE: February 01, 2018 SUBJECTIVE: The patient was seen for a followup this morning. Status post left great toe amputation, postop day 1. Pain is controlled. Reports no other complaints. PHYSICAL EXAMINATION VITAL SIGNS: Temperature is 98.3, heart rate 71, respiratory rate 17, blood pressure 119/58. GENERAL: The patient is alert and oriented times 3 in no acute distress. EXTREMITIES: Dorsalis pedis and posterior tibial pulses were nonpalpable on the left foot. Left great toe amputation stump site was intact with sutures in place. Some edema. No discharge. No dehiscence. ASSESSMENT 1. 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 2. Diabetes mellitus with peripheral neuropathy. 3. Peripheral vascular disease. PLAN: Dry sterile dressing along the left foot. Left great toe amputation stump site is intact. Okay to discharge on oral antibiotics per infectious disease. Partial weightbearing with surgical shoe. Follow up in my office in about 1 week. Job#: [id number] [place]
[2018-02-01 09:39] LABS: BASOPHILS # (AUTO) 0.1 (0.0-0.1); BASOPHILS % 0.6 % (0.0-1.0); EOSINOPHILS # (AUTO) 0.5 (0.0-0.4); EOSINOPHILS % 4.3 % (0.0-6.0); HEMATOCRIT 36.5 % (38.2-49.6); HEMOGLOBIN 12.4 g/dL (14.0-18.0); LYMPHOCYTES # (AUTO) 1.6 (1.0-3.2); LYMPHOCYTES % 14.5 % (18.0-39.1); MEAN CORPUSCULAR HEMOGLOBIN 29.1 pg (28-32); MEAN CORPUSCULAR VOLUME 85.7 fL (81-99); MONOCYTES # (AUTO) 0.9 (0.2-0.8); MONOCYTES % 8.1 % (4.4-11.3); NEUTROPHILS # (AUTO) 8.1 (2.1-6.9); NEUTROPHILS % 72.2 % (38.7-80.0); PLATELET COUNT 232 x10e3/uL (140-360); RED BLOOD COUNT 4.26 x10e6/uL (4.3-5.7); RED CELL DISTRIBUTION WIDTH 13.1 % (11.7-14.4)
[2018-02-01 09:57] LABS: ANION GAP 14.5 mmol/L (8-16); BLOOD UREA NITROGEN 12 mg/dL (7-26); BUN/CREATININE RATIO 12 (6-25); CALCIUM 9.4 mg/dL (8.4-10.2); CARBON DIOXIDE 30 mmol/L (22-29); CHLORIDE 100 mmol/L (98-107); CREATININE, SERUM 1.01 mg/dL (0.72-1.25); EST GLOMERULAR FILTRATION RATE > 60 ML/MIN (60-); GLUCOSE 219 mg/dL (74-118); POTASSIUM 4.5 mmol/L (3.5-5.1); SODIUM 140 mmol/L (136-145)
[2018-02-01] MEDS: GLIPIZIDE 5 MG TAB ER PO SCH (12:17)
[2018-02-01] MEDS: METFORMIN HCL 500 MG TAB PO SCH (17:00)
[2018-02-01] MEDS: VANCOMYCIN HCL 1.25 GM in SODIUM CHLORIDE 0.9% 250ML 300 ML IV SCH (17:00)
[2018-02-01] MEDS ORDERED: SODIUM CHLORIDE 0.9% 250ML 250 ML ONE (21:13)
[2018-02-01] MEDS: ATORVASTATIN 20 MG TAB PO SCH (21:15)
[2018-02-01] MEDS ORDERED: HYDROCODONE/APAP 10MG-325MG TAB PO PRN (23:30)
[2018-02-02] VITALS: BP 166/72
[2018-02-02 04:00] VITALS: BP 122/60
[2018-02-02] MEDS: PIPER-TAZ 3.375 GM 50 ML IV SCH (05:10)
[2018-02-02 07:25] VITALS: BP 132/63
[2018-02-02] MEDS: INSULIN LISPRO 100 UNIT/1 ML 3ML VIAL SQ SCH ×2 (07:30→11:30)
[2018-02-02 07:33] VITALS: BP 132/63
[2018-02-02] MEDS: METFORMIN HCL 500 MG TAB PO SCH (08:00)
[2018-02-02] MEDS: GLIPIZIDE 5 MG TAB ER PO SCH (08:00)
[2018-02-02] MEDS ORDERED: ASPIRIN 81 MG CHEW TAB PO SCH (09:00)
[2018-02-02] MEDS: LISINOPRIL 10 MG TAB PO SCH (09:11)
--- NOTE | 2018-02-02 11:21 | Discharge Summary ---
CONSULTANTS 1. Dr. Vic Wang. 2. Dr. Brandt Temple. 3. Dr. Jeremie Abbasi. FINAL DIAGNOSES 1. Left foot osteomyelitis of the left greater toe, status post left greater toe amputation. 2. Peripheral vascular disease. 3. Newly diagnosed diabetes type 2, glycohemoglobin A1c of 9.3. 4. Dyslipidemia. 5. Hypertension. SUMMARY: [id number] male came in with dry gangrene, uncontrolled diabetes. Left foot left greater toe osteomyelitis. The patient was seen by Dr. Wang and subsequently underwent left greater toe amputation. He does have peripheral vascular disease. Patient is doing much better. He is stable. Patient's glycohemoglobin A1c 9.3. He has been placed on medication. Blood sugar slightly improved with insulin sliding scale coverage and initiation of oral medication. Diabetic education nutritional consultation obtained. The patient will go home today. He will go home with doxycycline 100 mg twice a day from Dr. Abbasi. Prescription is already given. The patient will take it for 14 days. New prescription from me including aspirin 81 mg daily, Lipitor 20 mg nightly, Glucotrol XL 5 mg daily, metformin 500 mg b.i.d., lisinopril 20 mg daily, Tylenol No. 3 p.r.n. for pain. He will get a glucometer test strip and lancet. I instructed the patient to follow up with his family doctor within a week for diabetic control and hypertension management. [facility] obtained. The patient to follow up Dr. Wang for his postsurgical care. The patient expressed understanding. He is stable. He will go home today. All having been set up. Discussed with RN on all this discharge planning. Durable medical equipment ordered as well. Patient is stable for discharge home today. Job#: [id number] [place]
[2018-02-02 11:25] VITALS: BP 149/67
[2018-02-02] MEDS ORDERED: ASPIR 8181 MG PO (12:47)
[2018-02-02] MEDS ORDERED: LIPITOR20 MG PO (12:48)
[2018-02-02] MEDS ORDERED: GLUCOTROL XL10 MG PO (12:49)
[2018-02-02] MEDS ORDERED: METFORMIN HCL500 MG PO (12:49)
[2018-02-02] MEDS ORDERED: LISINOPRIL10 MG PO (12:50)
[2018-02-02] MEDS ORDERED: TYLENOL WITH C1 EACH PO (12:51)
[2018-02-02] MEDS ORDERED: DOXYCYCLINE HY100 MG PO (12:51)
[2018-02-03] MEDS ORDERED: LISINOPRIL 20 MG TAB PO SCH (09:00)
== END 2018-02-02 13:47 | disposition home health service (06) | DRG 253 ==
LOC: ER 14:11 → ERHOLD 18:38 → MED/SURG3 22:23
PROVIDERS: ADMIT Internal Medicine; ATTEND Internal Medicine
PROC: 047L3Z1 Dilation of Left Femoral Artery using Drug-Coated Balloon, Percutaneous Approach (ICD-10-PCS; 2018-01-27)
PROC: 047N3Z1 Dilation of Left Popliteal Artery using Drug-Coated Balloon, Percutaneous Approach (ICD-10-PCS; 2018-01-27)
PROC: 047 Lower Arteries, Dilation (ICD-10-PCS; 2018-01-27)
PROC: 0Y6Q0Z0 Detachment at Left 1st Toe, Complete, Open Approach (ICD-10-PCS; principal; 2018-01-31 13:30)
DX: E11.52 Type 2 diabetes mellitus with diabetic peripheral angiopathy with gangrene (principal); I96 Gangrene, not elsewhere classified; M86.172 Other acute osteomyelitis, left ankle and foot; E11.65 Type 2 diabetes mellitus with hyperglycemia; I10 Essential (primary) hypertension; E11.621 Type 2 diabetes mellitus with foot ulcer; L97.529 Non-pressure chronic ulcer of other part of left foot with unspecified severity; K29.70 Gastritis, unspecified, without bleeding; K20.9 Esophagitis, unspecified; E78.5 Hyperlipidemia, unspecified
CPT/HCPCS: 36415; 37224; 71045; 73706; 74470; 75710; 80048; 80053; 80061; 80202; 82948; 83036; 85025; 85347; 85610; 85730; 86140; 87040; 88305; 88311; 93005; 93306; 93925; 96361; 96372; 97139; 99284; C1769; J0360; J1644; J1650; J2001; J2250; J2405; J2543; J2720; J3370; J7030; J7050; Q9967